=== PATIENT | female | born 1990 | race Caucasian/White ===

== ENCOUNTER 2018-03-16 07:21 | Day surgery (SDC) | payer OTHER ==
[2018-03-16] MEDS ORDERED: ROPIVACAINE 0.5 % 30 ML VIAL (11:23)
[2018-03-16] MEDS ORDERED: FENTAnyl 50 MCG/ML VIAL (11:23)
[2018-03-16] MEDS ORDERED: MIDAZOLAM 1 MG/ML 2 ML INJ (11:26)
[2018-03-16] MEDS ORDERED: ROPIVACAINE 0.2% 20 ML VIAL (11:47)
[2018-03-16] MEDS ORDERED: PROPOFOL 20 ML (11:47)
[2018-03-16] MEDS ORDERED: KETOROLAC 30 MG INJ (11:56)
[2018-03-16] MEDS ORDERED: METOCLOPRAMIDE 10 MG INJ (11:56)
[2018-03-16] MEDS ORDERED: CEFAZOLIN 1 GM INJ (11:56)
[2018-03-16] MEDS ORDERED: ONDANSETRON 4 MG INJ (11:56)
[2018-03-16] MEDS ORDERED: ACETAMINOPHEN 1000MG/100ML IV 100 ML (11:57)
[2018-03-16] MEDS ORDERED: EPHEDrine SULFATE 50 MG/5 ML SYG (12:17)
[2018-03-16] MEDS ORDERED: HYDROmorphONE (0.2 MG/ML) 10ML SYG IV ×3 (12:30)
[2018-03-16] MEDS ORDERED: DIPHENHYDRAMINE 50 MG INJ IV (12:30)
[2018-03-16] MEDS ORDERED: MEPERIDINE 25 MG INJ IV (12:30)
[2018-03-16] MEDS: POLYMYXIN/BACITRACIN 1L IRRIG (12:46)
[2018-03-16] MEDS ORDERED: HYDROmorphONE 2 MG/ML SYG (14:06)
[2018-03-16] MEDS ORDERED: NEOMYC/POLYMYX/BACIT 30 GM OINT (14:33)
[2018-03-16] MEDS: ONDANSETRON 4 MG INJ IV (16:06)
[2018-03-16] MEDS: HYDROCODONE/APAP (5/325) TAB PO (17:14)
[2018-03-16] MEDS ORDERED: morphine 2 MG INJ IV (17:30)
== END 2018-03-16 18:03 | disposition home or self-care (01) ==
LOC: SDS 07:21
DX: M20.11 Hallux valgus (acquired), right foot (principal)
CPT/HCPCS: 28292; 73630; 82306